=== PATIENT | male | born 1980 | race Caucasian/White ===

== ENCOUNTER 2018-04-04 11:20 | Emergency (ER) | payer OTHER ==
[2018-04-04 11:37] VITALS: BP 156/89
--- NOTE | 2018-04-04 11:56 | UC ---
Back Pain HPI - HPI Summary HPI Summary: 37-year-old male here with a chief complaint of low back pain. The patient suffered from low back pain for 4 to 5 years. 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 He sees the [facility] and he is prescribed oxycodone 5 mg 6 tablets a day. He's been out of his medications for the last 3 days. His prescription was filled on March 03, 2018 for a total of 30 days 180 tablets. I did I stop the patient. There was some scheduling difficulties at the [facility] clinic and the patient's next appointment is not for one more week April 11, 2018. The patient is low back symptoms are similar to his prior chronic pain. His worst pain is at L5- S1 1 and he has some numbness and weakness in the left leg which is chronic. Patient reports that he has seen specialists to determine if surgery is appropriate at this time the patient's been trying to put off surgery of possible. No complaint of loss of urine or bowels. - History of Current Complaint Chief Complaint: UCBackPain Stated Complaint: BACK PAIN Time Seen by Provider: 04/04/18 11:38 Pain Intensity: 6 - Allergies/Home Medications Allergies/Adverse Reactions: Allergies Allergy/AdvReac Type Severity Reaction Status Date / Time No Known Allergies Allergy Verified 04/25/16 12:52 PMH/Surg Hx/FS Hx/Imm Hx - Additional Past Medical History Additional PMH: Chronic low back pain - Surgical History Surgical History: None - Family History Known Family History: Positive: None Family History: no known cardio-vascular issue in family lineage - Social History Alcohol Use: Occasionally Substance Use Type: None Smoking Status (MU): Never Smoked Tobacco Review of Systems Constitutional: Negative Skin: Negative Eyes: Negative ENT: Negative Respiratory: Negative Cardiovascular: Negative Gastrointestinal: Negative Genitourinary: Negative Motor: Other - see hpi Neurovascular: Negative Musculoskeletal: Other: - see hpi Neurological: Other - see hpi Psychological: Negative Is Patient Immunocompromised?: No All Other Systems Reviewed And Are Negative: Yes Physical Exam Triage Information Reviewed: Yes Appearance: Well-Appearing, No Pain Distress, Well-Nourished Vital Signs: Initial Vital Signs Temp 100 F 04/04/18 11:32 Pulse 90 04/04/18 11:32 Resp 18 04/04/18 11:32 BP 156/89 04/04/18 11:32 Pulse Ox 99 04/04/18 11:32 Vital Signs Reviewed: Yes Eyes: Positive: Conjunctiva Clear Neck exam: Normal Neck: Positive: Supple Respiratory: Positive: No respiratory distress Musculoskeletal: Positive: Other: - Patient has some tenderness to palpation in the lower lumbar area primary slightly to the left of L5-S1. On the legs the right leg neuro and strength is completely normal in the left leg there is low back pain with left hip flexion. Her appears to be some weakness in the left leg that the patient reports is chronic although it's hard to determine if it's also caused by pain with movement. Psychological Exam: Normal Psychological: Positive: Age Appropriate Behavior Skin Exam: Normal Back Pain Course/Dx - Course Course Of Treatment: I did I stop the patient. The plan is to write for oxycodone 5 mg for a total of 7 days which is a total of 42 tablets. Patient has follow-up with [facility] in one week. - Differential Dx/Diagnosis Provider Diagnoses: chronic low back pain and lunbar radiculopathy Discharge - Sign-Out/Discharge Documenting (check all that apply): Patient Departure All imaging exams completed and their final reports reviewed: No Studies - Discharge Plan Condition: Stable Disposition: HOME Prescriptions: oxyCODONE TAB* [Roxycodone TAB 5 mg*] 5 mg PO Q4H PRN #42 tab MDD 6 PRN Reason: Pain Patient Education Materials: Chronic Back Pain (ED), Lumbar Radiculopathy (ED) Referrals: Tayla Esparza [Primary Care Provider] - Additional Instructions: [facility]LLOW UP WITH [facility] SCHEDULES ON 04/11/18. GET RECHECKED FOR ANY WORSENING OF YOUR CONDITION OR QUESTIONS OR CONCERNS. - Billing Disposition and Condition Condition: STABLE Disposition: Home
== END 2018-04-04 12:15 | disposition home or self-care (01) ==
LOC: UCEAST 11:20
DX: M54.5 Low back pain (principal); M54.16 Radiculopathy, lumbar region
CPT/HCPCS: 99212; G0463